=== PATIENT | male | born 1990 | race Caucasian/White ===

== ENCOUNTER → 2021-03-08 | Emergency (ER) | payer SELFPAY ==
--- OUTSIDE RECORDS SUMMARY | 2021-03-08 14:45 | XMS REPORT | Continuity of Care Document ---
:1990 Author Organization [facility] t Address [address] [place] [address] Care Team Providers Name Role Phone Shield Attending Clinician Unavailable Shield Admitting Clinician Unavailable Payers Payer Name Policy Type Policy Number Effective Date Expiration Date S ource Problems This patient has no known problems. Allergies, Adverse Reactions, Alerts This patient has no known allergies or adverse reactions. Social History Smoking Status Start Date Stop Date Source Never Smoker [facility] Medications This patient has no known medications. Vital Signs Vital Name Observation Time Observation Value Comments Source Height 2018-03-08 00:00:00 68 [in_i] [facility] BMI (Body Mass 2018-03-08 00:00:00 59.1 kg/m2 [facility] BP Systolic 2018-03-08 00:00:00 154 mm[Hg] [facility] Body Weight 2018-03-08 00:00:00 6224 [oz_av] [facility] BP Diastolic 2018-03-08 00:00:00 105 mm[Hg] [facility] Procedures This patient has no known procedures. Plan of Care Planned Activity Planned Date Details Comments Source Diagnostic Test Pending 2018-03-08 CBC w/ auto diff [facility] 00:00:00 [code = CBC w/ Group auto diff] Diagnostic Test Pending 2018-03-08 BMP, serum or [facility] 00:00:00 plasma [code = Group BMP, serum or plasma] Diagnostic Test Pending 2018-03-08 TSH, serum or [facility] 00:00:00 plasma [code = Group TSH, serum or plasma] Instructions [facility] Encounters Start End Encounter Admission Attending Care Care Encounter Source Date/Time Date/Time Type Type Clinicians Facility Department ID 2019-12-19 2019-12-19 Outpatient [facility] [id number] [facility] 12:39:00 12:39:00 [id number] 2018-03-08 2018-03-08 [place] [place] - [id number] [facility] 00:00:00 00:00:00 [facility] [employer]: [address] [place] [address] , Ph. Results This patient has no known results.
== END ==
LOC: ER 14:42
DX: Z02.9 Encounter for administrative examinations, unspecified (principal)